=== PATIENT | male | born 1950 | race Caucasian/White ===

== ENCOUNTER → 2019-09-11 | Outpatient (CLI) | payer MEDICARE, OTHER ==
[~2019-09-11] MED LIST: CIPRO 250MG TA250 MG PO; FLOMAX 0.40.4 MG/CAP PO; LEVSIN 0.10.125 MG/T PO; LOPRESSOR 550 MG/TAB; MULTIPLE VITAMI1 CAP PO; NORCO 325 MG-51 TAB PO; PERCOCET 325 MG1 TA2 PO; PYRIDIUM200 M1 PO; ZOCOR 20MG20 MG; ZOFRAN 4MG T4 MG/TAB PO
== END ==
LOC: COL.RAD 14:15
DX: M65.842 Other synovitis and tenosynovitis, left hand (principal)
CPT/HCPCS: J3301; Q9967

== ENCOUNTER 2020-04-19 14:58 | Day surgery (SDC) | payer MEDICARE, OTHER ==
[2020-04-19] VITALS (10 sets, daily range): BP systolic 114–164; BP diastolic 64–89; PULSE 55–62; TEMP 97.8–98
[~2020-04-19] VITALS: Ht 167.6 cm; Wt 79.1 kg
[2020-04-19] MEDS ORDERED: ZOCOR 40MG40 MG PO (15:57)
[2020-04-19] MEDS ORDERED: ZOLOFT 100MG100 MG PO (15:58)
[2020-04-19] MEDS ORDERED: NORVASC 5MG5 MG/TAB PO (16:01)
[2020-04-19] MEDS ORDERED: PRINIVIL10 MG PO (16:02)
[2020-04-19] MEDS ORDERED: MOBIC15 MG PO (16:03)
[2020-04-19] MEDS ORDERED: PRILOSEC 20MG20 MG PO (16:03)
[2020-04-19] MEDS ORDERED: MULTIPLE VITAMI1 CAP PO (16:04)
--- NOTE | 2020-04-19 18:24 | NUR ---
PT TO ROOM 326 PER BED WITH REPORT FROM MARTHA GOVEA PACU @ 8001. PT A/O X3 EATING ICE CHIPS, PT HAS VOIDED IN PACU. MEAL TRAY ORDERED.
--- NOTE | 2020-04-19 18:48 | NUR ---
REPORT TO MUNDO GOVEA
--- NOTE | 2020-04-19 19:40 | NUR ---
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 Assessment complete. Post op vital signs continue to be stable. Has voided x2-red. States he is nervous about going home because laSt time he had to return and be admitted for urinary retention. Dr Rueda notified-okay to keep over night for observation-new orders received. Spoke with patient and with plan. Verbalizes understanding. Will monitor.
--- NOTE | 2020-04-19 22:30 | NUR ---
Called with c/o pain to right flank and urethra. Rating pain 7/10 on pain scale-described as constant ache/burn. [place] given per dr order. LR continues to infuse at 100ml/hr. Denies needs. Encouraged to increase PO fluids. Verbalizes understanding. Call light in reach. Will monitor.
[2020-04-20 00:17] VITALS: BP 150/75; PULSE 63; TEMP 98.3
--- NOTE | 2020-04-20 02:33 | NUR ---
Up to bathroom at this time. Urine yellow-no clots noted. C/O right flank pain described as constant throbbing-rating pain 7/10. [place] [address] order. Denies nausea/shortness of breath. Encouraged to continue to increase fluid intake. Verbalizes understanding. Call light in reach. Will monitor.
[2020-04-20 04:00] VITALS: BP 162/81; PULSE 59; TEMP 98.2
--- NOTE | 2020-04-20 04:52 | NUR ---
Sitting on side of bed states he is an early riser and has been awake since 0430. Stand by assist to bathroom-urine continues to be yellow with no clots noted. Voiding without difficulty. Tolerating PO. Did receive [place] for pain. Denies needs. Call light in reach. Will monitor.
[2020-04-20 07:53] VITALS: BP 89/49; PULSE 84; TEMP 97.3
[2020-04-20 08:01] VITALS: BP 124/64; PULSE 68; TEMP 97.9
--- NOTE | 2020-04-20 08:37 | NUR ---
Patient resting in bed. He was up to the bathroom & voided. His pain become so intense that he was sweating, lighthead & dizzy. Pain relieved at rest. Patient medicated with Azo & tylenol. He wants to try to avoid narcotics. IVf continues. He was able to eat braekfast. Will monitor.
--- NOTE | 2020-04-20 10:53 | NUR ---
Patient continues to have pain & discomfort with urination and movement. Dr. Rueda notifed & flomax ordered. He will see patient this afternoon.
[2020-04-20 11:16] VITALS: BP 133/71; PULSE 57; TEMP 98.5
--- NOTE | 2020-04-20 11:56 | NUR ---
First visit from the customer operations manager. No needs right now.
--- NOTE | 2020-04-20 12:39 | NUR ---
Patient resting in bed. at bedside, he did well with lunch. Has not voided yet since receiving Flomax.
--- NOTE | 2020-04-20 16:47 | NUR ---
Patient pain is still present with voiding, but not as severe. Patient does not yet want narcotics. Second dose of tylenol & AZO given. Dr. Rueda rounded & orders obtained. We reviewed all discharge paperwork. Iv Dc. Waiting on his daughter for a ride home.
--- NOTE | 2020-04-20 17:26 | NUR ---
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
== END 2020-04-20 17:27 | disposition home or self-care (01) ==
LOC: SDCO 14:58 → SURG 18:22 → SDCO 04-20 17:27
DX: N20.1 Calculus of ureter (principal); N21.0 Calculus in bladder; E78.5 Hyperlipidemia, unspecified; I10 Essential (primary) hypertension; G47.33 Obstructive sleep apnea (adult) (pediatric); K21.9 Gastro-esophageal reflux disease without esophagitis; Z88.2 Allergy status to sulfonamides
CPT/HCPCS: OP; C1769; C2617; J2405; J2704; J3010; J7120; Q9967